=== PATIENT | male | born 1995 | race Caucasian/White ===

== ENCOUNTER 2017-06-25 20:38 | Emergency (ER) | payer OTHER ==
[~2017-06-25] VITALS: Ht 162.6 cm; Wt 63.5 kg
[~2017-06-25 20:38] MED LIST: CEPH500C16 PO
[2017-06-25 21:01] VITALS: BP 130/93
[2017-06-25] MEDS ORDERED: ACETAMINOPHEN 325 MG TAB PO ONE (21:05)
[2017-06-25] MEDS ORDERED: IBUPROFEN 600 MG TAB PO ONE (21:05)
--- NOTE | 2017-06-25 21:05 | NUR ---
PT. AMBULATED TO [facility], INFLUENZA SEAB DONE
[2017-06-25] MEDS ORDERED: ACETAMINOPHEN EXTRA STRENGTH 500 MG TAB ONE (21:08)
--- NOTE | 2017-06-25 22:02 | NUR ---
PT.AMBULATED TO [facility]
--- NOTE | 2017-06-25 22:14 | NUR ---
PATIENT PRESENTS TO ED WITH C/O COUGH WITH DIFFICULTY BREATHING X 2 DAYS. NO MED HX. PT DENIES N/V/D; SKIN IS PINK/WARM/DRY; AAOX4 WITH EVEN AND STEADY GAIT; LUNGS CLEAR BL; HR EVEN AND REGULAR; PT DENIES ANY FEVER, CP, SOB, OR COUGH AT THIS TIME; VSS; PATIENT POSITIONED FOR COMFORT; HOB ELEVATED; BEDRAILS UP X2; BED DOWN. ER MD MADE AWARE OF PT STATUS.
--- NOTE | 2017-06-25 22:18 | NUR ---
Patient being evaluated by physician at bedside.
[2017-06-25 22:30] VITALS: BP 111/72
--- NOTE | 2017-06-25 22:30 | NUR ---
Patient discharged with v/s stable. Written and verbal after care instructions given and explained. Patient alert, oriented and verbalized understanding of instructions. Ambulatory with steady gait. All questions addressed prior to discharge. ID band removed. Patient advised to follow up with PMD. Rx of PHENERGAN DM given. Patient educated on indication of medication including possible reaction and side effects. Opportunity to ask questions provided and answered.
== END 2017-06-25 22:30 | disposition home or self-care (01) ==
LOC: MED 20:38
DX: J11.1 Influenza due to unidentified influenza virus with other respiratory manifestations (principal); F17.210 Nicotine dependence, cigarettes, uncomplicated
CPT/HCPCS: 36415; 71045; 87804; 99285

== ENCOUNTER 2017-09-27 10:11 | Emergency (ER) | payer OTHER ==
[~2017-09-27] VITALS: Ht 165.1 cm; Wt 68.5 kg
[2017-09-27 10:13] VITALS: BP 130/71
--- NOTE | 2017-09-27 10:16 | NUR ---
PT AMBULATED TO ER BED 06
--- NOTE | 2017-09-27 10:21 | NUR ---
PT COMES TO ER WITH C.O LEFT LOWER BACK PAIN 10/10 RADIATING TO LEFT LOWER LEG X 3 DAYS. DENIES INJURY, DENIES NUMBNESS/TINGLING. 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 ER MD NOTIFIED. WAITING FOR ER MD ASH. HX: NONE MEDS: NONE
[2017-09-27] MEDS ORDERED: KETOROLAC 30 MG/ML VIAL IM ONE (10:25)
--- NOTE | 2017-09-27 10:34 | NUR ---
PT TAKEN TO RADIOLOGY
--- NOTE | 2017-09-27 10:34 | NUR ---
pt went to xray
--- NOTE | 2017-09-27 10:44 | NUR ---
PT RETURNED FROM XRAY
[2017-09-27 11:43] VITALS: BP 130/71
--- NOTE | 2017-09-27 11:45 | NUR ---
Patient discharged with v/s stable. Written and verbal after care instructions given and explained. Patient alert, oriented and verbalized understanding of instructions. Ambulatory with steady gait. All questions addressed prior to discharge. ID band removed. Patient advised to follow up with PMD. Rx of naproxen given. Patient educated on indication of medication including possible reaction and side effects. Opportunity to ask questions provided and answered.patients vitals were normal range upon discharge.
== END 2017-09-27 11:45 | disposition home or self-care (01) ==
LOC: MED 10:11
DX: S39.012A Strain of muscle, fascia and tendon of lower back, initial encounter (principal); X50.0XXA Overexertion from strenuous movement or load, initial encounter; Y93.89 Activity, other specified; Y99.0 Civilian activity done for income or pay; Y92.89 Other specified places as the place of occurrence of the external cause
CPT/HCPCS: 72100; 96372; 99284; J1885

== ENCOUNTER 2017-11-19 21:27 | Emergency (ER) | payer OTHER ==
[~2017-11-19] VITALS: Ht 165.1 cm; Wt 70.3 kg
[2017-11-19 21:38] VITALS: BP 126/76
[2017-11-19 23:44] VITALS: BP 129/88
== END 2017-11-19 23:44 | disposition home or self-care (01) ==
LOC: MED 21:27
DX: R21 Rash and other nonspecific skin eruption (principal); Z79.899 Other long term (current) drug therapy
CPT/HCPCS: 96372; 99283

== ENCOUNTER 2018-03-23 11:10 | Emergency (ER) | payer OTHER ==
[~2018-03-23] VITALS: Ht 162.6 cm; Wt 72.6 kg
[2018-03-23 11:21] VITALS: BP 132/84
--- NOTE | 2018-03-23 11:35 | NUR ---
PT AMBULATES TO BED 11
--- NOTE | 2018-03-23 11:40 | NUR ---
23 YO M BIB [facility] W/ C/O MEDIAL ABD PAIN, N/V/D X 3 DAYS. PAIN 01/27. AAOX4, GCS 15. ABD SOFT, NON-TENDER. 3-4X EPISODE VOMITING TODAY, APPROX 10 EPISODES DIARRHEA. PT BEEN UNABLE TO EAT DRINK MUCH, BEEN DRINKING PEDIALYTE. 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 BED DOWN, LOCKED, BEDRAIL UP X 1, ER MD AWARE AND NOTIFIED OF PT STATUS. HX DENIES RX DENIES
--- NOTE | 2018-03-23 12:35 | NUR ---
Patient being evaluated by physician at bedside.
[2018-03-23] MEDS ORDERED: NACL 0.9% 1,000 ML IV ONE (12:42)
[2018-03-23] MEDS ORDERED: NACL 0.9% 1,000 ML IV SCH (12:42)
[2018-03-23] MEDS ORDERED: KETOROLAC 30 MG/ML VIAL IVP ONE (12:45)
[2018-03-23] MEDS ORDERED: DICYCLOMINE HCL LIQUID 10 MG/5 ML UDC PO ONE (12:45)
[2018-03-23] MEDS ORDERED: ONDANSETRON 4 MG/2 ML VIAL IVP ONE (12:45)
[2018-03-23] MEDS ORDERED: DIPHENOXYLATE /ATROPINE 2.5 MG TAB PO ONE (12:45)
[2018-03-23 13:07] LABS: BASOPHILS % (AUTO) 0.1 % (0.0-2.0); EOSINOPHILS # (AUTO) 0.1 K/uL (0-0.4); EOSINOPHILS % (AUTO) 2.2 % (0.0-4.0); HEMOGLOBIN 14.8 g/dL (12.0-18.0); LYMPHOCYTES % (AUTO) 17.1 % (20.5-51.1); MEAN CORPUSCULAR HEMOGLOBIN 28 pg (27-31); MEAN CORPUSCULAR HGB CONC 34 g/dL (33-37); MEAN CORPUSCULAR VOLUME 84.3 fL (80-94); MONOCYTES # (AUTO) 0.6 K/uL (0.8-1.0); MONOCYTES % (AUTO) 11.3 % (1.7-9.3); NEUTROPHILS # (AUTO) 3.9 K/uL (1.8-7.7); NEUTROPHILS % (AUTO) 69.3 % (42.2-75.2); PLATELET COUNT (AUTO) 180 K/uL (140-450); RED BLOOD CELL COUNT(AUTO) 5.22 MIL/uL (4.20-6.10); RED CELL DISTRIBUTION WIDTH 12.8 % (11.6-13.7); WHITE BLOOD COUNT (AUTO) 5.7 K/uL (4.8-10.8)
[2018-03-23 13:34] LABS: ALBUMIN 3.9 g/dL (3.4-5.0); CARBON DIOXIDE 29.8 mmol/L (21-32); CREATININE 1.4 mg/dL (0.7-1.3); POTASSIUM 3.8 mmol/L (3.5-5.1); TOTAL BILIRUBIN 0.4 mg/dL (0.0-1.0)
[2018-03-23 15:09] VITALS: BP 129/79
--- NOTE | 2018-03-23 15:10 | NUR ---
Patient discharged with v/s stable. Written and verbal after care instructions given and explained. Patient alert, oriented and verbalized understanding of instructions. Ambulatory with steady gait. All questions addressed prior to discharge. ID band removed. Patient advised to follow up with PMD. Rx of ZOFRAN, IMODIUM given. Patient educated on indication of medication including possible reaction and side effects. Opportunity to ask questions provided and answered.
== END 2018-03-23 15:10 | disposition home or self-care (01) ==
LOC: MED 11:10
DX: A08.4 Viral intestinal infection, unspecified (principal); Z79.899 Other long term (current) drug therapy
CPT/HCPCS: 36415; 80053; 82150; 83690; 85025; 96361; 96374; 96375; 99283; J1885; J2405; J7030